=== PATIENT | female | born 1985 | race Caucasian/White ===

== ENCOUNTER 2017-07-07 01:24 | Emergency (ER) | payer OTHER ==
[2017-07-07] MEDS ORDERED: Acetaminophen TAB* 325 MG PO ONE (01:42)
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
[2017-07-07 02:55] VITALS: BP 108/71
--- NOTE | 2017-07-07 08:15 | RAD ---
INDICATION: Facial bone injury COMPARISON: None TECHNIQUE: 4 views of the facial bones were obtained FINDINGS: There is no evidence plain radiographic evidence of facial bone fracture. The sinuses are well aerated. The sella appears intact. No calvarial abnormality is seen. IMPRESSION: NEGATIVE EXAMINATION. IF THERE WAS SIGNIFICANT TRAUMATIC INJURY OR THERE IS PERSISTENT CONCERN, CT IMAGING COULD BE OBTAINED.
== END 2017-07-07 02:53 | disposition home or self-care (01) ==
LOC: ED 01:24
DX: S00.83XA Contusion of other part of head, initial encounter (principal); S10.91XA Abrasion of unspecified part of neck, initial encounter; S09.90XA Unspecified injury of head, initial encounter; Y09 Assault by unspecified means; X58.XXXA Exposure to other specified factors, initial encounter; Y92.9 Unspecified place or not applicable; F41.9 Anxiety disorder, unspecified; F32.9 Major depressive disorder, single episode, unspecified; Z72.0 Tobacco use
CPT/HCPCS: 70150; 99282; A9270-GY